=== PATIENT | male | born 1980 | race African-American/Black ===

== ENCOUNTER 2016-12-07 21:14 | Emergency (ER) | payer OTHER ==
[2016-12-07 22:08] VITALS: BP 133/84
[2016-12-07] MEDS ORDERED: LIDOCAINE 5% (700 MG) TRANSDERMAL ADH..PATCH TP ONE (23:32)
[2016-12-07] MEDS ORDERED: ACETAMINOPHEN 325 MG TABLET PO ONE (23:44)
[2016-12-07] MEDS ORDERED: IBUPROFEN 600 MG TABLET PO ONE (23:44)
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
--- NOTE | 2016-12-08 00:47 | RADIOLOGY REPORT (SQ) ---
EXAM DESCRIPTION: SHOULDER RIGHT 2 OR MORE VIEWS COMPLETED DATE/TIME: 12/08/2016 12:19 am REASON FOR STUDY: right shoulder pain COMPARISON: None. NUMBER OF VIEWS: Three views. TECHNIQUE: Internal rotation, external rotation, and Y view images acquired of the right shoulder. LIMITATIONS: None. FINDINGS: MINERALIZATION: Normal. BONES: No acute fracture or dislocation. No worrisome bone lesions. Minimal osteoarthritis includes small osteophytes of the inferior glenohumeral joint. JOINTS: No dislocation. VISUALIZED LUNGS AND RIBS: No pneumothorax. No rib fracture. SOFT TISSUES: No radiopaque foreign body. OTHER: No other significant finding. IMPRESSION: NO RADIOGRAPHIC EVIDENCE OF ACUTE INJURY. TECHNICAL DOCUMENTATION: JOB ID: [id number] to be- All Rights Reserved
== END 2016-12-08 01:30 | disposition home or self-care (01) ==
LOC: ER 21:14
DX: S49.91XA Unspecified injury of right shoulder and upper arm, initial encounter (principal); M54.6 Pain in thoracic spine; M25.511 Pain in right shoulder; Y03.0XXA Assault by being hit or run over by motor vehicle, initial encounter; Y92.810 Car as the place of occurrence of the external cause
CPT/HCPCS: 99283

== ENCOUNTER 2017-05-19 12:26 | Emergency (ER) | payer SELFPAY ==
--- NOTE | 2017-05-19 14:10 | ER Document Report ---
ED Medical Screen (RME) - General Chief Complaint: Abdominal Pain Stated Complaint: SHOULDER/STOMACH PAIN Time Seen by Provider: 05/19/17 14:05 TRAVEL OUTSIDE OF THE [place] IN LAST 30 DAYS: No - HPI Notes: 05/19/17 14:05 Patient is a 37-year-old male who presents the ED with 2 separate complaints. The first complaint is ongoing chronic right shoulder pain >1year w/o new injury. Patient states that he has intermittent pain in the shoulder, but it has increased lately. The pain does not radiate from the shoulder. Patient states that he can still use his arm without any difficulties otherwise. Patient also complains of Lower mid abdominal pain that started this morning. Patient states that he was working on his car when he noticed a sharp pain just inferior to his umbilicus. Patient states that the pain does not radiate and became intermittent. Patient states that since then it has become a dull ache that is there constantly and does not radiate. Patient states that when it would flareup he was able to move to a semi-seated position which helped improve the pain. Patient is not sure of any movement or position that worsens his pain. Patient states that he is not sure if food improves or worsens his symptoms as he is not had anything to eat recently. Patient states that he still urinating normally otherwise and having normal bowel movements. Pt is sexually active in a monogamous relationship, unprotected. No urethral discharge, dysuria, or hematuria. Denies any headache, fever, head injury, neck pain, URI, sore throat, chest pain , palpitations, syncope, cough, shortness of breath, wheeze, dyspnea, nausea/ vomiting/diarrhea, urinary retention, dysuria, hematuria, back pain, loss of control of bowel or bladder, numbness/tingling, saddle anesthesia, muscle paralysis/weakness, or rash. - Related Data Allergies/Adverse Reactions: No Known Allergies Allergy (Unverified 05/19/17 12:28) Past Medical History - Social History Chew tobacco use (# tins/day): No Frequency of alcohol use: None Drug Abuse: None Renal/ Medical History: Denies: Hx Peritoneal Dialysis Psychiatric Medical History: Reports: Hx Depression - PTSD Past Surgical History: Reports: Hx Orthopedic Surgery - right hand Physical Exam - Vital signs Vitals: Temp Pulse Resp BP Pulse Ox 98.3 F 86 16 126/71 H 98 05/19/17 12:52 05/19/17 12:52 05/19/17 12:52 05/19/17 12:52 05/19/17 12:52 - Respiratory Respiratory status: No respiratory distress Breath sounds: Normal - Cardiovascular Rhythm: Regular Heart sounds: Normal auscultation - Abdominal Bowel sounds: Normal Course - Vital Signs Vital signs: Temp Pulse Resp BP Pulse Ox 98.3 F 86 16 126/71 H 98 05/19/17 12:52 05/19/17 12:52 05/19/17 12:52 05/19/17 12:52 05/19/17 12:52
[2017-05-19 14:42] LABS: ABSOLUTE BASOPHILS # (AUTO) 0.1 10^3/uL (0.0-0.2); ABSOLUTE EOSINOPHILS # (AUTO) 0.1 10^3/uL (0.0-0.6); ABSOLUTE LYMPHOCYTES (AUTO) 1.8 10^3/uL (0.5-4.7); ABSOLUTE MONOCYTES (AUTO) 0.5 10^3/uL (0.1-1.4); ABSOLUTE NEUT (AUTO) 4.4 10^3/uL (1.7-8.2); BASOPHILS % (AUTO) 0.9 % (0-2); EOSINOPHILS % (AUTO) 1.8 % (0-6); HEMATOCRIT 45.6 % (37.9-51.0); HEMOGLOBIN 15.4 g/dL (13.5-17.0); LYMPHOCYTES % (AUTO) 26.3 % (13-45); MEAN CORPUSCULAR HEMOGLOBIN 27.8 pg (27.0-33.4); MEAN CORPUSCULAR HGB CONC 33.8 g/dL (32.0-36.0); MEAN CORPUSCULAR VOLUME 82 fl (80-97); MONOCYTES % (AUTO) 6.9 % (3-13); PLATELET COUNT 257 10^3/uL (150-450); RED BLOOD COUNT 5.54 10^6/uL (4.35-5.55); RED CELL DISTRIBUTION WIDTH 13.2 % (11.5-14.0); SEGMENTED NEUTROPHILS % (AUTO) 64.1 % (42-78); TOTAL CELLS COUNTED % (AUTO) 100 %; WHITE BLOOD COUNT 6.8 10^3/uL (4.0-10.5)
[2017-05-19 14:43] LABS: APPEARANCE,URINE CLEAR; BILIRUBIN,URINE NEGATIVE (NEGATIVE); COLOR,URINE YELLOW; GLUCOSE, URINE NEGATIVE (NEGATIVE); KETONES,URINE NEGATIVE (NEGATIVE); LEUKOCYTE ESTERASE,URINE NEGATIVE (NEGATIVE); NITRITE,URINE NEGATIVE (NEGATIVE); PROTEIN,URINE NEGATIVE (NEGATIVE)
[2017-05-19 15:04] LABS: ALANINE AMINOTRANSFERASE 69 U/L (21-72); ALBUMIN 4.4 g/dL (3.5-5.0); ALKALINE PHOSPHATASE 59 U/L (38-126); ANION GAP 12 (5-19); ASPARTATE AMINO TRANSFERASE 49 U/L (17-59); BILIRUBIN,DIRECT 0.2 mg/dL (0.0-0.4); BILIRUBIN,TOTAL 0.4 mg/dL (0.2-1.3); BLOOD UREA NITROGEN 9 mg/dL (7-20); CALCIUM 10.8 mg/dL (8.4-10.2); CARBON DIOXIDE 27 mmol/L (22-30); CHLORIDE 106 mmol/L (98-107); GLUCOSE 85 mg/dL (75-110); POTASSIUM 4.5 mmol/L (3.6-5.0); SODIUM 144.5 mmol/L (137-145); TOTAL PROTEIN 7.1 g/dL (6.3-8.2)
[2017-05-19 16:12] LABS: CHLAM PCR NOT DETECTED (NOT DETECT); GON PCR NOT DETECTED (NOT DETECT)
--- NOTE | 2017-05-19 16:25 | ER Document Report ---
ED GI/ - General Chief Complaint: Abdominal Pain Stated Complaint: SHOULDER/STOMACH PAIN Time Seen by Provider: 05/19/17 14:05 Mode of Arrival: Ambulatory Information source: Patient Notes: 37 yo male with lower abdominal cramps today, intermittent. No n/v/d. No groin, testicular, scrotal pain. No dysuria. He wants to leave as soon as possible. No fever or chills. No URI, cough. Also c/o soreness in right shoulder for a while (in the joint). No specific injury. TRAVEL OUTSIDE OF THE [place] IN LAST 30 DAYS: No - Related Data Allergies/Adverse Reactions: No Known Allergies Allergy (Verified 05/19/17 16:07) Past Medical History - General Information source: Patient - Social History Smoking Status: Current Every Day Smoker Chew tobacco use (# tins/day): No Frequency of alcohol use: None Drug Abuse: None Lives with: Family Family History: Reviewed & Not Pertinent Patient has suicidal ideation: No Patient has homicidal ideation: No - Medical History Medical History: Negative Renal/ Medical History: Denies: Hx Peritoneal Dialysis Psychiatric Medical History: Reports: Hx Depression - PTSD Past Surgical History: Reports: Hx Orthopedic Surgery - right hand Review of Systems - Review of Systems Constitutional: No symptoms reported EENT: No symptoms reported Cardiovascular: No symptoms reported Respiratory: No symptoms reported Gastrointestinal: See HPI Genitourinary: No symptoms reported Male Genitourinary: No symptoms reported Musculoskeletal: See HPI Skin: No symptoms reported Hematologic/Lymphatic: No symptoms reported Neurological/Psychological: No symptoms reported Physical Exam - Vital signs Vitals: Temp Pulse Resp BP Pulse Ox 98.3 F 86 16 126/71 H 98 05/19/17 12:52 05/19/17 12:52 05/19/17 12:52 05/19/17 12:52 05/19/17 12:52 Interpretation: Normal - General General appearance: Appears well, Alert In distress: None - HEENT Head: Normocephalic, Atraumatic Eyes: Normal Conjunctiva: Normal Pupils: PERRL Mucous membranes: Normal Pharynx: Normal Neck: Supple. No: Lymphadenopathy - Respiratory Respiratory status: No respiratory distress Chest status: Nontender Breath sounds: Normal Chest palpation: Normal - Cardiovascular Rhythm: Regular Heart sounds: Normal auscultation Murmur: No - Abdominal Inspection: Normal Distension: No distension Bowel sounds: Normal Tenderness: Nontender. No: Tender Organomegaly: No organomegaly. No: Hepatomegaly, Splenomegaly - Back Back: Normal, Nontender. No: CVA tenderness - Extremities General upper extremity: Normal inspection, Nontender, Normal color, Normal ROM , Normal temperature General lower extremity: Normal inspection, Nontender, Normal color, Normal ROM , Normal temperature, Normal weight bearing. No: Nikki's sign Shoulder: Nontender - but hurts with the ROM. No: Deformity, Limited ROM - Neurological Neuro grossly intact: Yes Cognition: Normal Orientation: AAOx4 Keira Coma Scale Eye Opening: Spontaneous Keira Coma Scale Verbal: Oriented Keira Coma Scale Motor: Obeys Commands Keira Coma Scale Total: 15 Speech: Normal Motor strength normal: LUE, RUE, LLE, RLE Sensory: Normal - Psychological Associated symptoms: Normal affect, Normal mood - Skin Skin Temperature: Warm Skin Moisture: Dry Skin Color: Normal Skin irregularity: negative: Rash Course - Re-evaluation Re-evalutation: 05/19/17 16:23 Physical exam and labs are normal. Patient states that he never had any pain that radiated into his testicles and he has no groin scrotal or testicular pain. - Vital Signs Vital signs: Temp Pulse Resp BP Pulse Ox 97.8 F 69 16 108/80 100 05/19/17 16:30 05/19/17 16:30 05/19/17 16:30 05/19/17 16:30 05/19/17 16:30 - Laboratory Result Diagrams: 05/19/17 14:23 05/19/17 14:23 Laboratory results interpreted by me: 05/19/17 05/19/17 14:23 14:23 Calcium 10.8 H Urine Urobilinogen 4.0 H Discharge - Discharge Clinical Impression: midline low abdominal pain Right shoulder strain Qualifiers: Encounter type: initial encounter Qualified Code(s): S46.911A - Strain of unspecified muscle, fascia and tendon at shoulder and upper arm level, right arm , initial encounter Condition: Good Disposition: HOME, SELF-CARE Instructions: Abdominal Pain ([facility]), Arthralgia ([facility]) Additional Instructions: to er if worse motrin over the counter for right shoulder pain copy of labwork given to you Forms: Return to Work
[2017-05-19 16:31] VITALS: BP 108/80
== END 2017-05-19 16:34 | disposition home or self-care (01) ==
LOC: ER 12:26
DX: S46.911A Strain of unspecified muscle, fascia and tendon at shoulder and upper arm level, right arm, initial encounter (principal); R10.9 Unspecified abdominal pain; M25.511 Pain in right shoulder; F17.200 Nicotine dependence, unspecified, uncomplicated; X58.XXXA Exposure to other specified factors, initial encounter
CPT/HCPCS: 36415; 80053; 81001; 85025; 87086; 87491; 87591; 99284

== ENCOUNTER 2017-05-20 10:15 | Emergency (ER) | payer SELFPAY ==
[2017-05-20] MEDS ORDERED: IBUPROFEN 800 MG TABLET PO ONE (11:08)
--- NOTE | 2017-05-20 11:35 | RADIOLOGY REPORT (SQ) ---
EXAM DESCRIPTION: SHOULDER RIGHT 2 OR MORE VIEWS COMPLETED DATE/TIME: 05/20/2017 11:26 am REASON FOR STUDY: pain/grinding feeling COMPARISON: None. NUMBER OF VIEWS: Three views. TECHNIQUE: Internal rotation, external rotation, and Y view images acquired of the right shoulder. LIMITATIONS: None. FINDINGS: MINERALIZATION: Normal. BONES: No acute fracture or dislocation. No worrisome bone lesions. JOINTS: No glenohumeral dislocation. No AC joint widening. Mild bony spurring at the AC joint. VISUALIZED LUNGS AND RIBS: No pneumothorax. No rib fracture. SOFT TISSUES: No radiopaque foreign body. OTHER: No other significant finding. IMPRESSION: NEGATIVE STUDY OF THE RIGHT SHOULDER. NO RADIOGRAPHIC EVIDENCE OF ACUTE INJURY. TECHNICAL DOCUMENTATION: JOB ID: [id number] [employer]- All Rights Reserved
--- NOTE | 2017-05-20 11:44 | ER Document Report ---
ED Extremity Problem, Upper - General Chief Complaint: Shoulder Pain Stated Complaint: RIGHT SHOULDER PAIN Time Seen by Provider: 05/20/17 10:52 Mode of Arrival: Ambulatory Information source: Patient Notes: Patient is a 37-year-old male who presents to the ER today for right shoulder pain since 2016. Patient states that it has gotten worse and that he has never had it evaluated before. Patient states that it feels like a "grinding" every time he tries to move his arm in any direction. 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 He denies any injury or history of anything with this shoulder. TRAVEL OUTSIDE OF THE [place] IN LAST 30 DAYS: No - Related Data Allergies/Adverse Reactions: No Known Allergies Allergy (Verified 05/20/17 10:16) Past Medical History - General Information source: Patient - Social History Smoking Status: Current Every Day Smoker Chew tobacco use (# tins/day): No Frequency of alcohol use: Social Drug Abuse: None Family History: Reviewed & Not Pertinent Patient has suicidal ideation: No Patient has homicidal ideation: No Renal/ Medical History: Denies: Hx Peritoneal Dialysis Psychiatric Medical History: Reports: Hx Depression - PTSD/anxiety Past Surgical History: Reports: Hx Orthopedic Surgery - right hand Review of Systems - Review of Systems Constitutional: No symptoms reported EENT: No symptoms reported Cardiovascular: No symptoms reported Respiratory: No symptoms reported Gastrointestinal: No symptoms reported Genitourinary: No symptoms reported Male Genitourinary: No symptoms reported Musculoskeletal: See HPI Skin: No symptoms reported Hematologic/Lymphatic: No symptoms reported Neurological/Psychological: See HPI Physical Exam - Vital signs Vitals: Temp Pulse Resp BP Pulse Ox 98.0 F 82 18 117/72 99 05/20/17 10:21 05/20/17 10:21 05/20/17 10:21 05/20/17 10:21 05/20/17 10:21 - Notes Notes: PHYSICAL EXAMINATION: GENERAL: Well-appearing and in no acute distress. HEAD: Atraumatic, normocephalic. EYES: Pupils equal round and reactive to light, extraocular movements intact, sclera anicteric, conjunctiva are normal. NECK: Normal range of motion, supple without lymphadenopathy LUNGS: CTAB and equal. No wheezes rales or rhonchi. HEART: Regular rate and rhythm without murmurs EXTREMITIES: Full range of motion but with pain to the right shoulder on abduction, flexion and extension, tender to right posterior shoulder, no pitting edema. No cyanosis. NEUROLOGICAL: Cranial nerves grossly intact. Normal sensory/motor exams. PSYCH: Normal mood, normal affect. SKIN: Warm, Dry, normal turgor, no rashes or lesions noted Course - Re-evaluation Re-evalutation: 05/20/17 11:43 X-ray negative for any acute pathology. I will set patient up with orthopedics outpatient and have him follow-up with them. - Vital Signs Vital signs: Temp Pulse Resp BP Pulse Ox 98.0 F 82 18 117/72 99 05/20/17 10:21 05/20/17 10:21 05/20/17 10:21 05/20/17 10:21 05/20/17 10:21 Discharge - Discharge Clinical Impression: Right shoulder pain Qualifiers: Chronicity: acute Qualified Code(s): M25.511 - Pain in right shoulder Condition: Stable Disposition: HOME, SELF-CARE Additional Instructions: Return immediately for any new or worsening symptoms. Follow up with orthopedics, call tomorrow to make followup appointment. Prescriptions: Lidocaine 1 each TP DAILY PRN #10 adh..patch PRN Reason: Forms: Return to Work Referrals: ANGIE FLORES MD [ACTIVE STAFF] - Follow up as needed
[2017-05-20] MEDS ORDERED: LIDOCAINE 5% (700 MG) TRANSDERMAL ADH..PATCH TP ONE (12:05)
[2017-05-20 12:14] VITALS: BP 113/75
== END 2017-05-20 12:20 | disposition home or self-care (01) ==
LOC: ER 10:15
DX: M25.511 Pain in right shoulder (principal); R20.0 Anesthesia of skin; F17.200 Nicotine dependence, unspecified, uncomplicated
CPT/HCPCS: 99283

== ENCOUNTER 2019-03-27 09:30 | Emergency (ER) | payer MEDICAID ==
[2019-03-27 09:36] VITALS: BP 136/76
[2019-03-27] MEDS ORDERED: IBUPROFEN 800 MG TABLET PO ONE (09:42)
--- NOTE | 2019-03-27 09:43 | ER Document Report ---
HPI - HPI Patient complains to provider of: dental pain Time Seen by Provider: 03/27/19 09:37 Onset: Other Pain Level: 4 Context: 29-year-old male presents emergency department with reports of dental pain in 2 areas of his mouth. Reports he has had dental pain for 3 weeks on the left upper side and a week on the right upper side. Reports he bit down on his tongue reading and broke his tooth. Patient reports he has been using Orajel without relief of symptoms. Reports he does not like to take medications becaus e his mother of kidney disease. Denies fever vomiting. Reports tooth is sensitive to air heat and cold. No complaints of fever vomiting or diarrhea. Associated Symptoms: None Exacerbated by: Other - Sensitive to temperature, air Relieved by: Denies Similar symptoms previously: No Recently seen / treated by doctor: No - REPRODUCTIVE Reproductive: DENIES: : Past Medical History - General Information source: Patient - Social History Smoking Status: Current Every Day Smoker Cigarette use (# per day): Yes Frequency of alcohol use: Occasional Drug Abuse: None Occupation: Disabled for back pain and hand pain Family History: Reviewed & Not Pertinent Patient has suicidal ideation: No Patient has homicidal ideation: No Renal/ Medical History: Denies: Hx Peritoneal Dialysis Psychiatric Medical History: Reports: Hx Depression - PTSD/anxiety Past Surgical History: Reports: Hx Orthopedic Surgery - right hand Vertical Provider Document - CONSTITUTIONAL Agree With Documented VS: Yes Exam Limitations: No Limitations General Appearance: WD/WN, No Apparent Distress - INFECTION CONTROL TRAVEL OUTSIDE OF THE [place] IN LAST 30 DAYS: No - HEENT HEENT: Atraumatic, Normocephalic. negative: Conjuctival Injection, Pharyngeal Erythema Mouth Diagram: 1 - Broken tooth noted no erythema no swelling opens mouth wide clear voice no trismus, no ludwigs 2 - Broken tooth noted no erythema no swelling opens mouth wide clear voice no trismus, no ludwigs - NECK Neck: Normal Inspection, Supple. negative: Lymphadenopathy-Left, Lymphadenopathy-Right - RESPIRATORY Respiratory: Breath Sounds Normal, No Respiratory Distress - CARDIOVASCULAR Cardiovascular: Regular Rate, Regular Rhythm - MUSCULOSKELETAL/EXTREMETIES Musculoskeletal/Extremeties: JULIA REYES - NEURO Level of Consciousness: Awake, Alert, Appropriate Motor/Sensory: No Motor Deficit - DERM Integumentary: Warm, Dry Course - Re-evaluation Re-evalutation: 03/27/19 10:00 38-year-old male presents emergency department with 2 areas of dental pain. Reports one pain for the past 3 weeks and 1 pain for about 1 week. Reports he broke his tooth after biting down on his tongue piercing. patient reports he has been using Orajel without relief of symptoms. Patient was instructed on penicillin and Motrin for pain. Patient was also instructed on the importance of follow-up with dental. He verbalized understanding to all instructions. Dictation of this chart was performed using voice recognition software; therefore, there may be some unintended grammatical errors. - Vital Signs Vital signs: Temp Pulse Resp BP Pulse Ox 98.1 F 88 20 136/76 H 98 03/27/19 09:34 03/27/19 09:34 03/27/19 09:34 03/27/19 09:34 03/27/19 09:34 Discharge - Discharge Clinical Impression: Pain, dental Condition: Stable Disposition: HOME, SELF-CARE Instructions: Dentist, Use of [id number] Ibuprofen ([facility]), Penicillin V K ([facility]), Toothache ([facility]) Additional Instructions: *You have been evaluated for dental pain *Take medications as prescribed *Follow up with dentist this week *Return to ED for worsening condition, changes, needs Monitor your blood pressure. Your blood pressure was elevated today. This may be because you were anxious, in pain or because you need medication. It is important to follow up with your primary care provider for full evaluation. Prescriptions: Penicillin V Potassium [Penicillin Vk 500 mg Tablet] 500 mg PO BID #20 tablet Forms: Elevated Blood Pressure, Smoking Cessation Education
== END 2019-03-27 09:45 | disposition home or self-care (01) ==
LOC: ER 09:30
DX: S02.5XXA Fracture of tooth (traumatic), initial encounter for closed fracture (principal); W22.8XXA Striking against or struck by other objects, initial encounter; K08.89 Other specified disorders of teeth and supporting structures; F17.210 Nicotine dependence, cigarettes, uncomplicated
CPT/HCPCS: 99282

== ENCOUNTER 2019-07-11 13:34 | Emergency (ER) | payer MEDICAID ==
[2019-07-11] MEDS ORDERED: IBUPROFEN 600 MG TABLET PO ONE (14:30)
[2019-07-11] MEDS ORDERED: ACETAMINOPHEN 325 MG TABLET PO ONE (14:30)
--- NOTE | 2019-07-11 14:33 | ER Document Report ---
HPI - HPI Time Seen by Provider: 07/11/19 14:24 Pain Level: 5 Context: Patient is a 39-year-old male who presents emergency department with a chief complaint of right rib pain. Patient states that he was in a "wrestling match" last night. States that he was drinking last night and was okay, but when he woke up this morning he ended up having right-sided rib pain. - EENT EENT: DENIES: Sore Throat, Ear Pain, Nasal Drainage-Clear, Nasal Drainage- Purulent, Congestion, Eye problems - NEURO Neurology: DENIES: Headache, Weakness, Vision blurred, Dizzinesss / Vertigo - CARDIOVASCULAR Cardiovascular: REPORTS: Chest pain - Right chest wall - RESPIRATORY Respiratory: DENIES: Trouble Breathing, Coughing - GASTROINTESTINAL Gastrointestinal: DENIES: Abdominal Pain, Nausea, Patient vomiting, Diarrhea, Constipation, Black / Bloody Stools - REPRODUCTIVE Reproductive: DENIES: : - MUSCULOSKELETAL Musculoskeletal: REPORTS: Extremity pain, Back Pain, Neck Pain, Swelling - DERM Skin Color: Normal Skin Problems: None Past Medical History - Social History Smoking Status: Current Every Day Smoker Frequency of alcohol use: Occasional Drug Abuse: None Family History: Reviewed & Not Pertinent Patient has suicidal ideation: No Patient has homicidal ideation: No Renal/ Medical History: Denies: Hx Peritoneal Dialysis Psychiatric Medical History: Reports: Hx Depression - PTSD/anxiety Past Surgical History: Reports: Hx Orthopedic Surgery - right hand Vertical Provider Document - CONSTITUTIONAL Agree With Documented VS: Yes Exam Limitations: No Limitations General Appearance: No Apparent Distress - INFECTION CONTROL TRAVEL OUTSIDE OF THE [place] IN LAST 30 DAYS: No - HEENT HEENT: Atraumatic, Normocephalic, PERRLA - NECK Neck: Normal Inspection - RESPIRATORY Respiratory: Breath Sounds Normal, No Respiratory Distress. negative: Chest Non-Tender - Right side tenderness - CARDIOVASCULAR Cardiovascular: Regular Rate, Regular Rhythm Pulses: Normal: Radial - MUSCULOSKELETAL/EXTREMETIES Musculoskeletal/Extremeties: FROM - NEURO Level of Consciousness: Awake, Alert, Appropriate - DERM Integumentary: Warm, Dry, No Rash Course - Re-evaluation Re-evalutation: 07/11/19 15:05 Patient's rib x-ray is negative for any acute findings. No pneumothorax noted. I suspect patient has bruised ribs. He states that he feels better after receiving ibuprofen and Tylenol. Patient will be given an incentive spirometer to help prevent pneumonia. I educated the patient on this. He will follow-up with a primary care provider in regards to this visit. He is in agreement with this plan. Follow-up precautions were given. Verbal discharge instructions were given to the patient. They verbalized understanding. They are stable for discharge. - Vital Signs Vital signs: Temp Pulse Resp BP Pulse Ox 98.1 F 88 20 131/62 H 99 07/11/19 13:58 07/11/19 13:58 07/11/19 13:58 07/11/19 13:58 07/11/19 13:58 Discharge - Discharge Clinical Impression: Contusion of rib on right side Qualifiers: Encounter type: initial encounter Qualified Code(s): S20.211A - Contusion of right front wall of thorax, initial encounter Condition: Stable Disposition: HOME, SELF-CARE Additional Instructions: You were seen today in the emergency department for rib pain. Your x-ray is normal. Please continue taking ibuprofen 600 mg and acetaminophen 1000 mg every 6 hours for your pain. Please use the incentive spirometer 10 times an hour while awake to help prevent pneumonia. Please follow-up with your primary care provider in regards to this visit. Forms: Return to School
--- NOTE | 2019-07-11 14:52 | RADIOLOGY REPORT (SQ) ---
EXAM DESCRIPTION: RIBS RIGHT W/PA CHEST COMPLETED DATE/TIME: 07/11/2019 2:40 pm REASON FOR STUDY: right rib pain COMPARISON: None. TECHNIQUE: Frontal view of the chest and additional views of the right ribs acquired. NUMBER OF VIEWS: Three views. LIMITATIONS: None. FINDINGS: FRONTAL CXR: The cardiomediastinal silhouette and pulmonary vasculature are within normal limits. There is no consolidation, pleural effusion or pneumothorax. RIBS: No displaced rib fractures. OTHER: No other finding. IMPRESSION: No acute cardiopulmonary process. No displaced rib fractures. COMMENT: SITE OF TRAUMA/COMPLAINT MARKED/STAMP COMPLETED: NO. TECHNICAL DOCUMENTATION: JOB ID: [id number] All Rights Reserved Reading location - IP/workstation name: [email or web address]
[2019-07-11 15:32] VITALS: BP 136/80
== END 2019-07-11 15:33 | disposition home or self-care (01) ==
LOC: ER 13:34
DX: S20.211A Contusion of right front wall of thorax, initial encounter (principal); R07.81 Pleurodynia; X58.XXXA Exposure to other specified factors, initial encounter; Y93.72 Activity, wrestling
CPT/HCPCS: 99283; 71101; J3490 ×2

== ENCOUNTER 2019-11-04 08:56 | Emergency (ER) | payer MEDICAID ==
[2019-11-04] MEDS ORDERED: ACETAMINOPHEN 325 MG TABLET PO ONE (09:36)
[2019-11-04] MEDS ORDERED: IBUPROFEN 600 MG TABLET PO ONE (11:55)
--- NOTE | 2019-11-04 11:56 | ER Document Report ---
HPI - HPI Time Seen by Provider: 11/04/19 11:47 Pain Level: 5 Context: Patient is a 39-year-old male who presents emergency department with a chief complaint of tooth pain to tooth #3. Pain started last night. Patient states the filling fell out of his tooth. - ROS Systems Reviewed and Negative: Yes All other systems reviewed and negative - CONSTITUTIONAL Constitutional: DENIES: Fever, Chills - EENT EENT: DENIES: Sore Throat, Ear Pain Notes: tooth pain; see HPI. - REPRODUCTIVE Reproductive: DENIES: : - DERM Skin Color: Normal Skin Problems: None Past Medical History - General Information source: Patient - Social History Smoking Status: Current Some Day Smoker Frequency of alcohol use: Occasional Drug Abuse: None Family History: Reviewed & Not Pertinent Renal/ Medical History: Denies: Hx Peritoneal Dialysis Psychiatric Medical History: Reports: Hx Depression - PTSD/anxiety Past Surgical History: Reports: Hx Orthopedic Surgery - right hand Vertical Provider Document - CONSTITUTIONAL Agree With Documented VS: Yes Exam Limitations: No Limitations General Appearance: No Apparent Distress - INFECTION CONTROL TRAVEL OUTSIDE OF THE [place] IN LAST 30 DAYS: No - HEENT HEENT: Atraumatic, Normocephalic Mouth Diagram: 1 - filling missing/dental carry - NECK Neck: Normal Inspection - RESPIRATORY Respiratory: No Respiratory Distress - CARDIOVASCULAR Cardiovascular: Regular Rhythm Pulses: Normal: Radial - MUSCULOSKELETAL/EXTREMETIES Musculoskeletal/Extremeties: FROM - NEURO Level of Consciousness: Awake, Alert, Appropriate Motor/Sensory: No Motor Deficit, No Sensory Deficit - DERM Integumentary: Warm, Dry, No Rash Course - Re-evaluation Re-evalutation: Patient's physical exam and history is most consistent with a infected tooth. Patient is able to swallow, no facial swelling noted, airway is patent, vital signs are normal. I do not suspect Eleuterio's angina, peritonsilar abscess, or airway obstruction. The patient will be started on oral antibiotics. I have given the patient education on their antibiotics. Patient was given instructions to follow-up with a dentist this week. Return precautions were given. Verbal discharge instructions were given. Patient verbalized u nderstanding. Patient is stable for discharge. Discharge - Discharge Clinical Impression: Tooth ache Condition: Stable Disposition: HOME, SELF-CARE Instructions: Penicillin V K ([facility]), Toothache ([facility]) Additional Instructions: You have been seen in the emergency department for a toothache. You may take ibuprofen 600 mg and Tylenol 1000 mg every 6 hours as needed for the pain. You have also been prescribed antibiotics. Please take the antibiotics as prescribed, even if you start to feel better. If you develop a fever greater than 100.4 F, or have any symptoms that are worrisome to you, please return to the emergency department. Please follow-up with a dentist this week in regards to your visit. Prescriptions: Ibuprofen [Ibu] 600 mg PO Q6HP PRN #30 tablet PRN Reason: Penicillin V Potassium [Penicillin Vk 500 mg Tablet] 500 mg PO BID #20 tablet
[2019-11-04 11:58] VITALS: BP 133/96
== END 2019-11-04 12:02 | disposition home or self-care (01) ==
LOC: ER 08:56
DX: K08.9 Disorder of teeth and supporting structures, unspecified (principal); F17.200 Nicotine dependence, unspecified, uncomplicated
CPT/HCPCS: 99282; J3490 ×2